=== PATIENT | male | born 1945 ===

== ENCOUNTER 2018-10-09 14:38 | Outpatient (REF) | payer MEDICARE, OTHER, SELFPAY ==
[2018-10-09 19:58] LABS: HGB 14.4 g/dL (13.5-17.5); Mean Corp. HGB Concentration 35.1 g/dL (32.0-36.0); Mean Corpuscular Hemoglobin 32.3 pg (27.0-33.0); Mean Corpuscular Volume 91.9 fL (80-95); Mean Platelet Volume 9.8 fL (8.0-11.0); Platelet Count 230 x1000/uL (130-400); RBC 4.46 m/cumm (4.50-6.00); White Blood Cell Count 6.38 k/cumm (4.4-10.8)
[2018-10-09 20:01] LABS: Anion Gap 10.9 mmol/L (3-11); BUN 17 mg/dL (7-18); C-Reactive Protein 0.31 mg/dL (0.0-0.3); CO2 25.1 mmol/L (21.0-32.0); CREATININE 0.85 mg/dL (0.70-1.30); Calcium 9.4 mg/dL (8.5-10.1); Chloride 103 mmol/L (98-107); Glucose 117 mg/dL (70-100); Potassium 4.4 mmol/L (3.5-5.1); Sodium 139 mmol/L (136-145); Uric Acid 6.1 mg/dL (3.5-7.2)
[2018-10-09 20:41] LABS: ESR 13 MM/HR (1-20)
[2018-10-11 11:28] LABS: Lyme Ab w Rflx to Lyme Confirm Negative
== END 2018-10-09 14:58 ==
LOC: NCHCN 14:38
PROVIDERS: PCP Physician Assistant; Visit Provider Internal Medicine
DX: M25.571 Pain in right ankle and joints of right foot (principal); M12.871 Other specific arthropathies, not elsewhere classified, right ankle and foot
CPT/HCPCS: 80048; 85027; 85652; 84550; 86140; 86618

== ENCOUNTER 2018-11-16 15:24 | Outpatient (REF) | payer MEDICARE, OTHER, SELFPAY ==
[2018-11-16 19:19] LABS: ALT 26 U/L (12-78); LDL CHOLESTEROL 58 mg/dL (<100); TSH 1.34 uIU/mL (0.36-3.74)
== END 2018-11-16 15:44 ==
LOC: NCHCN 15:24
PROVIDERS: PCP Physician Assistant; Visit Provider Internal Medicine
DX: E78.5 Hyperlipidemia, unspecified (principal); R53.83 Other fatigue; I73.9 Peripheral vascular disease, unspecified; M12.871 Other specific arthropathies, not elsewhere classified, right ankle and foot
CPT/HCPCS: 83721; 84443; 84460

== ENCOUNTER 2019-05-21 15:36 | Outpatient (REF) | payer MEDICARE, OTHER, SELFPAY ==
[2019-05-21 19:34] LABS: HCT 44.2 % (40.0-50.0); HGB 15.3 g/dL (13.5-17.5); Mean Corp. HGB Concentration 34.6 g/dL (32.0-36.0); Mean Corpuscular Hemoglobin 31.9 pg (27.0-33.0); Mean Corpuscular Volume 92.3 fL (80-95); Platelet Count 233 x1000/uL (130-400); RBC 4.79 m/cumm (4.50-6.00); RBC Distribution Width 12.9 % (11.8-14.1)
[2019-05-21 19:51] LABS: Anion Gap 6.1 mmol/L (3-11); BUN 25 mg/dL (7-18); CO2 30.9 mmol/L (21.0-32.0); CREATININE 1.15 mg/dL (0.70-1.30); Calcium 8.9 mg/dL (8.5-10.1); Chloride 103 mmol/L (98-107); Glucose 101 mg/dL (74-106); Potassium 4.4 mmol/L (3.5-5.1); Sodium 140 mmol/L (136-145)
[2019-05-21 19:53] LABS: Troponin I < 0.05 ng/Ml (<0.06)
== END 2019-05-21 15:56 ==
LOC: NCHCN 15:36
PROVIDERS: PCP Physician Assistant; Visit Provider Internal Medicine
DX: R55 Syncope and collapse (principal); I48.92 Unspecified atrial flutter
CPT/HCPCS: 80048; 85027; 84484

== ENCOUNTER 2019-08-17 18:59 | Outpatient (REF) | payer MEDICARE, OTHER, SELFPAY ==
[2019-08-17 20:02] LABS: Abs Immature Grans 0.01 k/cumm (0.0-0.09); Absolute Basophil Count 0.02 k/cumm (0.0-0.2); Absolute Eosinophil Count 0.12 k/cumm (0.0-0.7); Absolute Lymphocyte Count 1.88 k/cumm (1.2-3.4); Absolute Monocyte Count 0.98 k/cumm (0.11-0.7); Absolute Neutrophil Count 4.61 k/cumm (1.2-6.7); Basophils % 0.3; Eosinophils % 1.6; HCT 45.5 % (40.0-50.0); HGB 15.8 g/dL (13.5-17.5); Immature Grans % 0.1 %; Lymphocytes % 24.7; Mean Corp. HGB Concentration 34.7 g/dL (32.0-36.0); Mean Corpuscular Hemoglobin 31.7 pg (27.0-33.0); Mean Corpuscular Volume 91.4 fL (80-95); Mean Platelet Volume 10.8 fL (8.0-11.0); Monocytes % 12.9; Neutrophils % 60.4; Platelet Count 198 x1000/uL (130-400); RBC 4.98 m/cumm (4.50-6.00); RBC Distribution Width 13.9 % (11.8-14.1); White Blood Cell Count 7.62 k/cumm (4.4-10.8)
[2019-08-17 20:13] LABS: C-Reactive Protein 0.14 mg/dL (0.0-0.3); LDH 203 U/L (85-227)
[2019-08-17 20:41] LABS: ESR 7 mm/hr (1-20)
== END 2019-08-17 19:19 ==
LOC: NCHCN 18:59
PROVIDERS: PCP Physician Assistant; Visit Provider Internal Medicine
DX: I48.92 Unspecified atrial flutter (principal); I88.9 Nonspecific lymphadenitis, unspecified; M79.10 Myalgia, unspecified site
CPT/HCPCS: 85652; 83615; 85025; 86140

== ENCOUNTER 2021-05-19 14:19 | Outpatient (REF) | payer OTHER, SELFPAY ==
--- OUTSIDE RECORDS SUMMARY | 2021-05-19 14:23 | XMS_ITS ---
:1945 Author Care Team Providers Name Role Phone NII SPENCER MD General Surgeon [phone] MONTRELL LUCERO MD Property Damage Claims Adjustor [phone] VANDANA NELSON MD Primary Care Provider [phone] Allergies Code Code System Name Reaction Severity Status Onset Penicillins Rash ? Active ? Notes: No seafood allergy. No co ntrast allergy. Medications Name Status Start Date Stop Date ? ? Ambien 10 mg tablet Completed 01/01/2013 08/27/2015 -1 Tablet: as needed amlodipine 5 mg-valsartan 320 Completed ? mg tablet aspirin 81 mg tablet,delayed release Completed ? 01/28/2021 Take 1 tablet every day by oral route as needed. atorvastatin 20 mg tablet Active ? Not av ailable Take 1 tablet every day by oral route in the evening. atovaquone 250 mg-proguanil 100 mg tablet Completed 201102/14/2012 1 Tablet: daily chlorthalidone 25 mg tablet Completed 11/28/2014 06/03/2015 Tablet: daily for blood pressure Cipro 250 mg tablet Completed 05/13/2010 05/13/2010 1 (one) Tablet: Twice daily Cipro 500 mg tablet Completed 08/28/2015 05/13/2016 1 (one) Tablet: take after Cystoscopy dexamethasone 4 mg tablet Completed ? 2019 Eliquis 5 mg tablet Active 01/28/2021 Not availabl e Fish Oil 1,000 mg (120 mg-180 mg) capsule Completed ? 06/01/2019 Take 1 capsule every day by oral route in the evening. fluocinolone 0.01 % topical solution Completed 08/13/2014 08/27/2015 1 (one) application: at bedtime as needed gabapentin 100 mg capsule Completed ? 2019 hydrochlorothiazide 12.5 mg tablet Unknown ? Not available Take 1 tablet every day by oral route in the morning. hydrochlorothiazide 25 mg tablet Active ? Not available Take 1 tablet every day by oral route. hydrocodone 5 mg-acetaminophen Completed ? 0 06/01/2019 325 mg tablet hydrocodone 7.5 Completed ? 06/01/2019 mg-acetaminophen 325 mg tablet losartan 100 mg tablet Completed ? 1 Take 1 tablet every day by oral route. losartan 25 mg tablet Completed ? 01/30/2020 Take 2 tablets every day by oral route. losartan 50 mg tablet Active ? Not availa ble Take 1 tablet twice a day by oral route. methylprednisolone 4 mg Completed ? 04/27/19 20 tablets in a dose pack metoprolol succinate ER 50 mg Completed ? tablet,extended release 24 hr metoprolol tartrate 25 mg tablet Active ? Not available Take 0.5 tablet(s) twice a day by oral route. ondansetron HCl 4 mg tablet Completed ? 08/2019 oxybutynin chloride 5 mg Completed ? 020 tablet prednisone 20 mg tablet Completed ? 04/27/19 20 tamsulosin 0.4 mg capsule Completed ? 2019 1 tablet daily triamcinolone acetonide 0.1 % topical ointment Completed 1 04/10/2013 02/28/2014 1 (one) Ointment: two times daily valacyclovir 1 gram tablet Completed 01/17/201405/23 1 (one) Tablet Tablet: daily Vicodin 5 mg-300 mg tablet Completed ? 09/14 Take 1 tablet every 4 hours by oral route as needed. Notes: 09/06/2019 Pt also report s taking atorvastatin - unsure of dosage. Problems Name Status Onset Date Source ? 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 Hyperlipidemia Active 07/27/2018 ? Numbness of Face Active 07/27/2018 ? History of Calculus of Kidney Active 07/27/2018 ? Hyperopia of Right Eye Active 07/27/2018 ? Inguinal Hernia Active 09/04/2018 ? Atrial Flutter Active 06/01/2019 ? Snoring Active 08/31/2019 ? 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 Herpes Simplex Active ? History Verruca Plantaris Active ? History Plane Wart Active ? History Body Mass Index 25-29 - Overweight Active ? History Impotence Active ? History Obstructive Sleep Apnea Syndrome Active ? ? Essential Tremor Active ? History Migraine with Aura Active ? History Benign Essential Hypertension Active ? Hi story Hypertensive Disorder Active ? History Allergic Rhinitis Active ? History Diaphragmatic Hernia Active ? History Melena Active ? History Blood in Urine Active ? History Itching Active ? History Actinic Keratosis Active ? History Sleep Disorder Active ? History Eruption Active ? History Chest Pain Active ? History Reduced Libido Active ? History Influenza Vaccine Needed Active ? History Consultation Active ? History Adult Health Examination Active ? History Tuberculosis Screening Active ? History Inflammatory Dermatosis Active ? History Knee Pain Active ? History Procedures Date Name Performed by ? 05/09/2019 Bladder Tumor Transurethral Information not available Resection 09/04/2018 Hernia Repair Inguinal Information not a vailable Notes: open inguinal hernia repair wi th mesh, right 05/25/2016 Colonoscopy Information not avai lable Notes: pancolonic diverti culosis, small internal hemrrhoids; 04/07/2011 diverticulosis; 11/01/1995 small polyps removed, mild diverticulosis of the sigmoid, internal hemorrhoids, otherwise normal colonoscopy to the terminal ileum 03/31/2011 Cryotherapy/Cryocautery Information not available Notes: destruction of lesion; seborrh eic keratoses left ch ? Operation on Bladder Information not nas ilable Notes: 201606/01/2019 Holter Monitor [facility] Cardio pulmonary [address], [place] [address] (Work Place) 06/01/2019 Event Monitor [facility] Cardio pulmonary [address] [place], [place] [address] (Work Place) 07/19/2019 Holter Monitor [facility] [address] [place] [address] (Work Place) Results Lab Results Date Name Specimen Result Interpretation Description Value Range Status Address ? 03/07/2020 CBC W/ Auto BLD ? Wbc 7.5 10*3/uL 5.0-10.0 F inal [place] Diff 10*3/uL [facility] L ab (Internal) : [address] ? ? BLD ? Rbc 4.79 10*6/uL 4.60-6.00 Final N orth 10*6/uL [facility] L ab (Internal) : [address] ? ? BLD ? Hgb 15.6 g/dL 14.0-18.0 Final Nort h g/dL [facility] L ab (Internal) : [address] ? ? BLD ? Hct 45.8 % 41.0-51.0 Final [facility] L ab (Internal) : [address] ? ? BLD ? Mcv 95.6 fL 80.0-96.0 Final [facility] L ab (Internal) : [address] ? ? BLD High Mch 32.6 pg 26.0-32.0 Final [facility] L ab (Internal) : [address] , [place] ? ? BLD ? Mchc 34.1 g/dL 31.0-35.0 Final Nort h g/dL [facility] L ab (Internal) : [address] ? ? BLD ? Rdw 12.4 % 11.5-14.5 Final [facility] L ab (Internal) : [address] ? ? BLD ? Plt 216 10*3/uL 130-450 Final Nort h 10*3/uL [facility] L ab (Internal) : [address] ? ? BLD ? Anc 4.83 10*3/uL ? Final Nort h [facility] L ab (Internal) : [address] ? ? BLD ? Nlr 3.10 0.00-3.20 Final [facility] L ab (Internal) : [address] ? ? BLD ? Neutro 64.6 % 40.0-75.0 Final [facility] L ab (Internal) : [address] ? ? BLD ? Lymph 20.9 % 20.0-50.0 Final [facility] L ab (Internal) : [address] ? ? BLD High [place] 11.6 % 2.0-10.0 Final [facility] L ab (Internal) : [address] ? ? BLD ? Eos 2.0 % 1.0-6.0 % Final [facility] L ab (Internal) : [address] [place] ? ? BLD ? Baso 0.5 % 0.0-1.0 % Final [facility] L ab (Internal) : [address] ? ? BLD ? Ig 0.4 % 0.0-0.9 % Final [facility] L ab (Internal) : [address] 03/07/2020 BMP, Serum S High g/r 108 mg/dL 74-106 Final North or Plasma mg/dL [facility] [address] ? ? S High Bun 25 mg/dL 9-20 Final [facility] mg/dL [facility] (Internal) : [address] ? ? S ? Crea 1.00 mg/dL 0.66-1.25 Final Nor th mg/dL [facility] (Internal) : [address] ? ? S ? Ca 9.8 mg/dL 8.4-10.2 Final [place] mg/dL [facility] (Internal[facility] : [address] ? ? S ? Na 140 mmol/L 137-145 Final North mmol/L [facility] L [facility] (Internal) : [address] ? ? S ? K 4.1 mmol/L 3.5-5.1 Final [place] mmol/L [facility] (Internal) : [address] ? ? S ? Cl 101 mmol/L 98-107 Final [place] mmol/L [facility] L [facility] (Internal) : [address] ? ? S ? Tco2 30.0 mmol/L 22.0-30.0 Final No rth mmol/L [facility] L [facility] (Internal) : [address] 03/07/2020 BNP (B-type S ? Nt-probnp 84 pg/mL 0-125 Fi nal North Natriuretic pg/mL Count ry Peptide), Hospita l Lab Prohormone (Inter nal): N-terminal, [address], [place] Immunoassay , Blood 01/03/2020 EKG Done by ? No ? ? ? N orth Lab observatio [facility] recorded. (Shipping Inspector al): [address] 09/07/2019 EKG Done by ? No ? ? ? N orth Lab [facility]atio [facility] recorded. (Shipping Inspector al): [address] 09/07/2019 EKG Done by ? No ? ? ? N orth Lab observatio [facility] recorded. (Shipping Inspector al): [address] 02/27/2019 Culture UR - Final microbiology ? Final [place] (Dante results [facility]), Hospital Lab Urine (Internal) : [address] 02/27/2019 Urinalysis, UR - UA-color yellow pale Final [place] Complete yellow [facility] ab (Internal) : [address] t ? ? UR ABNORMAL UA-appear hazy clear [facility] [address] t ? ? UR - UA-spec >=1.030 1.003-1.0 Final Nort Grav 35 [facility] ab (Internal) : [address] ? ? UR - UA-pH 5.0 [pH] 4.6-8.0 Final [place] [pH] [facility] ab (Internal) : [address] t ? ? UR ABNORMAL UA-leuk trace negative [facility] ab (Internal[facility] : [address] t ? ? UR - UA-nitrit negative negative Final No rth e [facility] ab (Internal) : [address] t ? ? UR ABNORMAL UA-prot 1+ negative Final [facility] ab (Internal) : [address] t ? ? UR - UA-gluc negative negative Final [facility] ab (Internal) : [address] t ? ? UR - UA-ketone negative negative [facility] [address] t ? ? UR - UA-urobil normal normal Final [facility] ab (Internal) : [address] t ? ? UR - UA-bili negative negative Final [facility] ab (Internal) : [address] t ? ? UR ABNORMAL UA-blood moderate negative Final [facility] ab (Internal) : [address] t ? ? UR ABNORMAL UA-WBC 10-25 [hpf] 0-3 [hpf] Final [facility] ab (Internal) : [address] t ? ? UR ABNORMAL UA-RBC 5-10 [hpf] 0-2 [hpf] Final [facility] L ab (Internal) : [address] ? ? UR - UA-bacter rare [hpf] none seen Final [place] ia [hpf] [facility] L ab (Internal) : [address] t ? ? UR - UA-epithe rare [hpf] none seen Final [place] lial [hpf] [facility] L [facility] (Internal) : [address] t ? ? UR ABNORMAL UA-mucus rare [hpf] none seen Final [place] [hpf] [facility] L [facility] (Internal) : [address] 07/26/2017 Venipunctur BLD ? Venpn* ? ? Final [facility] (Internal) : [address] 07/26/2017 Culture, UR ? Final microbiology ? Final [place] Urine results [facility] (Internal) : [address] 07/26/2017 CBC W/ Auto BLD ? Wbc 6.5 10*3/uL 5.0-10.0 F inal [place] Diff 10*3/uL [facility] (Internal) : [address] t ? ? BLD ? Rbc 4.80 10*6/uL 4.60-6.00 Final N orth 10*6/uL [facility] (Internal) : [address] ? ? BLD ? Hgb 15.3 g/dL 14.0-18.0 Final Nort h g/dL [facility] L [facility] (Internal) : [address] t ? ? BLD ? Hct 44.9 % 41.0-51.[address] [facility] L [facility] (Internal) : [address] ? ? BLD ? Mcv 93.5 fL 80.0-96.0 Final [facility] L ab (Internal) : [address] ? ? BLD ? Mch 31.9 pg 26.0-32.0 Final [facility] L [facility] (Internal) : [address] t ? ? BLD ? Mchc 34.1 g/dL 31.0-35.0 Final Nort h g/dL [facility] L [facility] (Internal) : [address] ? ? BLD ? Rdw 13.2 % 11.5-14.5 Final [place] % [facility] L [facility] (Internal) : [address] ? ? BLD ? Plt 134 10*3/uL 130-450 Final Nort h 10*3/uL [facility] (Internal[facility] : [address] ? ? BLD ? Anc 4.03 10*3/uL ? Final Nort h [facility] L ab (Internal) : [address] ? ? BLD ? Neutro 62.3 % 40.0-75.0 Final [place] % [facility] L [facility] (Internal) : [address] ? ? BLD ? Lymph 24.8 % 20.0-50.0 Final [place] % [facility] L [facility] (Internal) : [address] t ? ? BLD High [place] 10.2 % 2.0-10.0 Final [facility] L ab (Internal) : [address] ? ? BLD ? Eos 1.9 % 1.0-6.0 % Final [facility] L ab (Internal) : [address] ? ? BLD ? Baso 0.5 % 0.0-1.0 % Final [facility] L ab (Internal) : [address] ? ? BLD ? Ig 0.3 % 0.0-0.9 % Final [facility] L [facility] (Internal) : [address] t 07/26/2017 CMP, Serum S ? g/r 105 mg/dL 74-106 Final North or Plasma mg/dL [facility] (Internal) : [address] ? ? S ? Bun 18 mg/dL 9-20 Final North mg/dL [facility] (Internal) : [address] t ? ? S ? Crea 1.00 mg/dL 0.66-1.25 Final Nor th mg/dL [facility] L [facility] (Internal) : [address] t ? ? S ? Ca 9.8 mg/dL 8.4-10.2 Final [facility] mg/dL [facility] (Internal) : [address] t ? ? S ? Na 140 mmol/L 137-145 Final [facility] mmol/L [facility] (Internal) : [address] t ? ? S ? K 4.1 mmol/L 3.5-5.1 Final [facility] mmol/L [facility] (Internal) : [address] t ? ? S ? Cl 101 mmol/L 98-107 Final [place] mmol/L [facility] (Internal) : [address] t ? ? S ? Tco2 29.0 mmol/L 22.0-30.0 Final No rth mmol/L [facility] (Internal) : [address] t ? ? S ? Tp 8.0 g/dL 6.3-8.2 Final [facility] g/dL [facility] (Internal) : [address] t ? ? S ? Alb 4.8 g/dL 3.5-5.0 Final [facility] g/dL [facility] (Internal) : [address] t ? ? S ? Tbil 1.1 mg/dL 0.2-1.3 Final [facility] mg/dL [facility] (Internal) : [address] t ? ? S Low Alp 33 U/L 38-126 Final [facility] U/L [facility] (Internal[facility] : [address] t ? ? S ? Alt 34 U/L 21-72 U/L Final [place] (Sgpt) [facility] (Internal) : [address] t ? ? S ? Ast 35 U/L 17-59 U/L Final [place] (Sgot) [facility] (Internal) : [address] 11/30/2016 Venipunctur BLD ? Venpn* ? ? Final North e [facility] (Internal[facility] : [address] 11/30/2016 CMP, Serum S High g/r 107 mg/dL 74-106 Final North or Plasma mg/dL [facility] (Internal) : [address] t ? ? S ? Bun 18 mg/dL 9-20 Final [facility] mg/dL [facility] (Internal) : [address] t ? ? S ? Crea 1.00 mg/dL 0.66-1.25 Final Nor th mg/dL [facility] (Internal) : [address] t ? ? S ? Ca 9.5 mg/dL 8.4-10.2 Final [facility] mg/dL [facility] (Internal) : [address] t ? ? S ? Na 140 mmol/L 137-145 Final [facility] mmol/L [facility] (Internal) : [address] t ? ? S ? K 4.2 mmol/L 3.5-5.1 Final [facility] mmol/L [facility] (Internal) : [address] t ? ? S ? Cl 99 mmol/L 98-107 Final [place] mmol/L [facility] (Internal) : [address] t ? ? S ? Tco2 27.0 mmol/L 22.0-30.0 Final No rth mmol/L [facility] (Internal) : [address] t ? ? S High Tp 8.5 g/dL 6.3-8.2 Final [facility] g/dL [facility] (Internal) : [address] t ? ? S ? Alb 5.0 g/dL 3.5-5.0 Final [facility] g/dL [facility] (Internal) : [address] t ? ? S ? Tbil 1.2 mg/dL 0.2-1.3 Final [facility] mg/dL [facility] (Internal) : [address] t ? ? S Low Alp 37 U/L 38-126 Final [place] U/L [facility] (Internal) : [address] t ? ? S Low Alt 20 U/L 21-72 U/L Final [place] (Sgpt) [facility] (Internal) : [address] t ? ? S ? Ast 30 U/L 17-59 U/L Final [place] (Sgot) [facility] (Internal) : [address] t 11/30/2016 Lipid S ? Chol 121 mg/dL 50-200 Final Nor th Panel, mg/dL [facility] Serum [facility] L ab (Internal) : [address] t ? ? S ? Trig 96 mg/dL 10-150 Final [place] mg/dL [facility] L ab (Internal) : [address] t ? ? S ? Hdl 44 mg/dL 40-60 Final North mg/dL [facility] (Internal) : [address] t ? ? S ? Ldl 58 mg/dL 0-130 Final [place] mg/dL [facility] (Internal) : [address] 08/05/2016 Venipunctur BLD ? Venpn* ? ? Final [place] e [facility] ab (Internal) : [address] 08/05/2016 Creatinine, S ? Crea 1.00 mg/dL 0.66-1.25 F inal [place] Serum or mg/dL [facility] Plasma [facility] L ab (Internal) : [address] 06/14/2016 Culture, UR ? Final microbiology ? Final [place] Urine results [facility] ab (Internal) : [address] 06/14/2016 Urinalysis, UR ABNORMAL UA-WBC 10-25 [hpf] 0-3 [hp f] Final [place] Microscopic Count [facility] ab (Internal) : [address] t ? ? UR ABNORMAL UA-RBC >100 [hpf] 0-2 [hpf] Final [facility] ab (Internal) : [address] t ? ? UR ABNORMAL UA-bacter moderate none seen Final [place] ia [hpf] [hpf] [facility] ab (Internal) : [address] t ? ? UR ? UA-epithe rare [hpf] none seen Final [place] lial [hpf] [facility] ab (Internal) : [address] ? ? UR ? UA-mucus none seen none seen Final N orth [hpf] [hpf] [facility] ab (Internal) : [address] 06/14/2016 Urinalysis, UR ? UA-color dark yellow pale Final [place] Dipstick, yellow [facility] ab Micro (Internal) : [address] t ? ? UR ABNORMAL UA-appear cloudy clear Final Nort h [facility] ab (Internal) : [address] ? ? UR ? UA-spec 1.025 1.003-1.0 Final [place] Grav [address] [place] [address] (Internal) : [address] ? ? UR ? UA-pH 5.5 [pH] 4.6-8.0 Final [place] [pH] [facility] ab (Internal) : [address] ? ? UR ABNORMAL UA-leuk trace negative Final [facility] ab (Internal) : [address] ? ? UR ABNORMAL UA-nitrit positive negative Final [facility] (Internal) : [address] [place] ? ? UR ABNORMAL UA-prot 2+ negative Final [facility] (Internal) : [address] ? ? UR ? UA-gluc negative negative Final [facility] ab (Internal) : [address] ? ? UR ? UA-ketone negative negative Final No [facility] (Internal) : [address] ? ? UR ABNORMAL UA-urobil positive normal Final No [facility] (Internal) : [address] [place] ? ? UR ? UA-bili negative negative Final [facility] (Internal) : [address] ? ? UR ABNORMAL UA-blood large negative Final [facility] (Internal) : [address] [place] Past Encounters 01/28/2021 Montrell Lucero MD: [address] [place] [address], Ph. 07/29/2020 Montrell Lucero MD: [address] [place] [address], Ph. 06/02/2020 Obstructive Sleep Apnea Syndrome Lucero Magallon NP: [address] [place] [address], Ph. 03/03/2020 Obstructive Sleep Apnea Syndrome; Period ic Leg Movements of Sleep Lucero Magallon NP: [address] [place] [address], Ph. 01/03/2020 Montrell Lucero MD: [address] [place] [address], Ph. 11/21/2019 Snoring; Atrial Flutter Lucero Magallon [employer]OCK BRE[employer]ER: [address], [place] [address], Ph. Social History Tobacco Smoking Status Never Smoker Vaccine List Vaccine Type COVID-19, mRNA, LNP-S, PF, 100 mcg/0.5 m L dose (Moderna) 06/13/2020?100 mcg Hep A-Hep B 02/02/2012?0.5 mL 02/21/2013?1 mL 07/25/2013?1 mL influenza, high dose seasonal 12/28/2018 influenza, high-dose, quadrivalent 01/11/2020 influenza, injectable, quadrivalent 03/08/2018 influenza, seasonal, injectable 12/27/2011?0.5 mL 12/30/2016?0.5 mL influenza, seasonal, injectable, preserv ative free 11/18/2010?0.5 mL 01/01/2013?0.5 mL 02/28/2014?0.5 mL pneumococcal polysaccharide PPV23 02/26/2011?0.5 mL Tdap 11/18/2010?0.5 mL typhoid, ViCPs 02/01/2012?0.5 mL yellow fever 02/01/2012?0.5 mL zoster live 02/26/2011?0.65 mL Plan of Care Reminders Provider Appointments None ? ? recorded. Lab None ? ? recorded. Referral None ? ? recorded. Procedures None ? ? recorded. Surgeries None ? ? recorded. Imaging None ? ? recorded. Vitals 01/28/2021 09:45AM Follow Up 30 Height Weight BMI Blood Pressure 187.96 cm 98 kg 27.7 kg/m2 149/76 mm[Hg] 07/29/2020 08:30AM Follow Up 30 Height Weight BMI Blood Pressure 187.96 cm 97.3 kg 27.5 kg/m2 136/76 mm[Hg] 06/02/2020 10:00AM Office 30 Height Weight BMI 187.96 cm 94.35 kg 26.7 kg/m2 03/03/2020 09:15AM Office 30 Height Weight BMI 185.42 cm 92.53 kg 26.9 kg/m2 01/03/2020 01:00PM Follow Up 30 Height Weight BMI Blood Pressure 185.42 cm 93.4 kg 27.2 kg/m2 (1) 136/69 mm[H g] (2) 133/73 mm[Hg ] 11/21/2019 01:00PM New Patient 46 Height Weight BMI Blood Pressure 185.42 cm 93.53 kg 27.2 kg/m2 175/78 mm[Hg] 10/15/2019 09:30AM Follow Up 30 Height Weight BMI Blood Pressure 185.42 cm 93 kg 27.1 kg/m2 120/76 mm[Hg] 07/18/2019 02:00PM Follow Up 30 Height 185.42 cm 06/01/2019 09:30AM Follow Up 30 Height Weight BMI Blood Pressure 185.42 cm 95.5 kg 27.8 kg/m2 123/82 mm[Hg] 04/27/2019 11:15AM Consult 45 Height Weight BMI Blood Pressure 185.42 cm 97.6 kg 28.4 kg/m2 128/76 mm[Hg] 09/14/2018 01:45PM Office 15 Height 185.42 cm 04/28/2018 Height Weight BMI Blood Pressure 185.42 cm 95.35 kg 27.7 kg/m2 122/80 mm[Hg] 02/24/2018 11:00AM Follow Up 15 Height 182.88 cm 06/22/2017 Height Weight 182.88 cm 93.89 kg 05/11/2016 Height Weight 184.15 cm 93.53 kg 08/27/2015 Weight Blood Pressure 92.08 kg 150/70 mm[Hg] 05/23/2014 Weight Blood Pressure 89.99 kg 154/74 mm[Hg] 02/28/2014 Height Weight Blood Pressure 184.15 cm 90.85 kg 160/80 mm[Hg] 07/25/2013 Height Weight Blood Pressure 184.15 cm 91.76 kg (1) 130/70 mm[Hg] (2) 138/70 mm[Hg] 02/21/2013 Height Weight Blood Pressure 184.15 cm 94.85 kg (1) 140/70 mm[Hg] (2) 150/70 mm[Hg] (3) 140/60 mm[Hg] (4) 134/72 mm[Hg] 01/31/2013 Height Weight Blood Pressure 184.15 cm 99.2 kg 140/70 mm[Hg] 01/01/2013 Height Weight Blood Pressure 185.42 cm 98.84 kg 138/80 mm[Hg] 06/29/2012 Height Weight Blood Pressure 184.79 cm 100.02 kg (1) 160/80 mm[Hg] (2) 138/80 mm[Hg] 02/02/2012 Blood Pressure 142/80 mm[Hg] 02/26/2011 Height Weight Blood Pressure 184.15 cm 100.56 kg (1) 132/80 mm[Hg] (2) 128/70 mm[Hg] 11/18/2010 Height Weight Blood Pressure 184.79 cm 100.24 kg 118/68 mm[Hg] 05/13/2010 Weight Blood Pressure 98.6 kg (1) 140/84 mm[Hg] (2) 136/78 mm[Hg] 02/24/2010 Height Weight Blood Pressure 182.88 cm 97.2 kg 116/60 mm[Hg]
[2021-05-19 19:03] LABS: HCT 43.9 % (40.0-50.0); HGB 14.9 g/dL (13.5-17.5); MCH 32.3 pg (27.0-33.0); MCHC 33.9 % (32.0-36.0); MPV 10.7 fL (8.0-11.0); Platelet Count 202 10^3/uL (130-400); RBC 4.62 10^6/uL (4.36-5.78); RDW 12.9 % (11.8-14.1); RDW-SD 44.9 fL; WBC 5.71 10^3/uL (4.4-10.8)
[2021-05-19 19:21] LABS: Anion Gap 9.3 mmol/L (3-11); BUN 25 mg/dL (7-18); CO2 27.7 mmol/L (21.0-32.0); CREATININE 1.2 mg/dL (0.70-1.30); Calcium 9.3 mg/dL (8.5-10.1); Calculated LDL 62 mg/dL (<100); Chloride 103 mmol/L (98-107); Cholesterol 127 mg/dL (<200); Estimated GFR 59.02 (mL/min/1.73m2); Glucose 110 mg/dL (74-106); HDL Cholesterol 53 mg/dL (40-60); Potassium 4.2 mmol/L (3.5-5.1); Sodium 140 mmol/L (136-145); Triglyceride 64 mg/dL (<150)
[2021-05-25 16:44] LABS: Testosterone, Free 7.78 ng/dL (3.08-11.3); Testosterone, Total 389 ng/dL (240-950)
== END 2021-05-19 14:20 | disposition home or self-care (01) ==
LOC: NCHCN 14:19
PROVIDERS: PCP Physician Assistant; Visit Provider Internal Medicine
DX: I10 Essential (primary) hypertension (principal); R53.83 Other fatigue; E78.5 Hyperlipidemia, unspecified; M79.10 Myalgia, unspecified site
CPT/HCPCS: 80048; 80061; 84402; 84403; 85027

== ENCOUNTER 2022-02-01 21:04 | Outpatient (REF) | payer MEDICARE, SELFPAY ==
[2022-02-01 21:22] LABS: HGB 15.4 g/dL (13.5-17.5); MCH 32.9 pg (27.0-33.0); MCV 94 fL (80-95); MPV 12.2 fL (8.0-11.0); Platelet Count 129 10^3/uL (130-400); RBC 4.68 10^6/uL (4.36-5.78); RDW 12.7 % (11.8-14.1); RDW-SD 43.6 fL; WBC 6.21 10^3/uL (4.4-10.8)
[2022-02-01 21:42] LABS: ALT 28 U/L (16-63); AST 28 U/L (15-37); Alkaline Phosphatase 35 U/L (46-116); Anion Gap 8.4 mmol/L (3-11); BUN 21 mg/dL (7-18); Bilirubin, Total 1.1 mg/dL (0.2-1.0); CO2 25.6 mmol/L (21.0-32.0); CREATININE 1.1 mg/dL (0.70-1.30); Calcium 9.1 mg/dL (8.5-10.1); Calculated LDL 63 mg/dL (<100); Chloride 103 mmol/L (98-107); Cholesterol 125 mg/dL (<200); Estimated GFR 69.57 (mL/min/1.73m2); Glucose 131 mg/dL (74-106); HDL Cholesterol 46 mg/dL (40-60); Potassium 4.4 mmol/L (3.5-5.1); Sodium 137 mmol/L (136-145); Total Protein 7.5 g/dL (6.4-8.2); Triglyceride 84 mg/dL (<150)
== END 2022-02-01 21:05 | disposition home or self-care (01) ==
LOC: NCHCN 21:04
PROVIDERS: PCP Physician Assistant; Visit Provider Internal Medicine
DX: E78.5 Hyperlipidemia, unspecified (principal); I10 Essential (primary) hypertension
CPT/HCPCS: 80053; 80061; 85027

== ENCOUNTER 2022-10-05 10:23 | Outpatient (REF) | payer MEDICARE, SELFPAY ==
[2022-10-05 19:40] LABS: HGB 15.7 g/dL (13.5-17.5); MCH 32.8 pg (27.0-33.0); MCHC 35.7 % (32.0-36.0); MCV 92 fL (80-95); MPV 11.9 fL (8.0-11.0); Platelet Count 150 10^3/uL (130-400); RBC 4.78 10^6/uL (4.36-5.78); RDW-SD 43.8 fL; WBC 5.68 10^3/uL (4.4-10.8)
[2022-10-05 22:24] LABS: ALT 62 U/L (16-63); AST 45 U/L (15-37); Alkaline Phosphatase 35 U/L (46-116); Anion Gap 7.8 mmol/L (3-11); BUN 19 mg/dL (7-18); Bilirubin, Total 0.8 mg/dL (0.2-1.0); CO2 28.2 mmol/L (21.0-32.0); CREATININE 1.1 mg/dL (0.70-1.30); Calcium 9.1 mg/dL (8.5-10.1); Chloride 104 mmol/L (98-107); Estimated GFR 69.57 (mL/min/1.73m2); Glucose 134 mg/dL (74-106); Potassium 4.2 mmol/L (3.5-5.1); Sodium 140 mmol/L (136-145); Total Protein 7.4 g/dL (6.4-8.2)
[2022-10-05 23:14] LABS: Iron 88 ug/dL (65-175); Total Iron Binding Capacity 320 ug/dL (250-450); Transferrin Sat 28 % (20-55)
[2022-10-07 12:35] LABS: Hepatitis C Ab w Rflx HCV PCR Negative (Negative)
== END 2022-10-05 10:24 | disposition home or self-care (01) ==
LOC: NCHCN 10:23
PROVIDERS: PCP Physician Assistant; Visit Provider Internal Medicine
DX: I10 Essential (primary) hypertension (principal); Z11.59 Encounter for screening for other viral diseases; R71.8 Other abnormality of red blood cells
CPT/HCPCS: 80053; 85027; 86803; 83540; 83550

== ENCOUNTER 2023-11-14 15:08 | Outpatient (REF) | payer MEDICARE, SELFPAY ==
[2023-11-14 19:57] LABS: HCT 45.1 % (40.0-50.0); HGB 15.6 g/dL (13.5-17.5); MCH 33.7 pg (27.0-33.0); MCHC 34.6 % (32.0-36.0); MCV 97 fL (80-95); MPV 12.6 fL (8.0-11.0); Platelet Count 106 10^3/uL (130-400); RBC 4.63 10^6/uL (4.36-5.78); RDW 12.6 % (11.8-14.1); RDW-SD 45.1 fL; WBC 6.66 10^3/uL (4.4-10.8)
[2023-11-14 20:16] LABS: ALT 34 U/L (16-63); AST 28 U/L (15-37); Albumin 4.2 g/dL (3.4-5.0); Alkaline Phosphatase 36 U/L (46-116); Anion Gap 8.4 mmol/L (3-11); BUN 26 mg/dL (7-18); Bilirubin, Total 1.08 mg/dL (0.2-1.0); CO2 25.6 mmol/L (21.0-32.0); CREATININE 1.4 mg/dL (0.70-1.30); Calcium 9.8 mg/dL (8.5-10.1); Chloride 103 mmol/L (98-107); Estimated GFR 51.77 (mL/min/1.73m2); Glucose 133 mg/dL (74-106); Potassium 4.3 mmol/L (3.5-5.1); Sodium 137 mmol/L (136-145); TSH 1.23 uIU/Ml (0.36-3.74); Total Protein 7.8 g/dL (6.4-8.2)
[2023-11-14 20:24] LABS: Hemoglobin A1C 5.9 % (<5.7)
== END 2023-11-14 15:09 | disposition home or self-care (01) ==
LOC: NCHCN 15:08
PROVIDERS: PCP Physician Assistant; Visit Provider Internal Medicine
DX: R53.83 Other fatigue (principal)
CPT/HCPCS: 80053; 85027; 83036; 84443

== ENCOUNTER 2024-08-15 11:57 | Outpatient (REF) | payer MEDICARE, SELFPAY ==
[2024-08-15 20:24] LABS: HCT 44.7 % (40.0-50.0); HGB 15.5 g/dL (13.5-17.5); MCH 32.2 pg (27.0-33.0); MCHC 34.7 % (32.0-36.0); MCV 93 fL (80-95); Platelet Count 139 10^3/uL (130-400); RBC 4.81 10^6/uL (4.36-5.78); RDW 12.7 % (11.8-14.1); RDW-SD 43.7 fL; WBC 5.62 10^3/uL (4.4-10.8)
[2024-08-15 21:07] LABS: ALT 27 U/L (16-63); AST 29 U/L (15-37); Albumin 4.4 g/dL (3.4-5.0); Alkaline Phosphatase 41 U/L (46-116); Anion Gap 4.3 mmol/L (3-11); BUN 21 mg/dL (7-18); CO2 30.7 mmol/L (21.0-32.0); CREATININE 1.1 mg/dL (0.70-1.30); Calcium 9.8 mg/dL (8.5-10.1); Calculated LDL 66 mg/dL (<100); Chloride 103 mmol/L (98-107); Cholesterol 135 mg/dL (<200); Estimated GFR 68.71 (mL/min/1.73m2); Glucose 109 mg/dL (74-106); HDL Cholesterol 57 mg/dL (>or=40); Potassium 4.8 mmol/L (3.5-5.1); Sodium 138 mmol/L (136-145); Total Protein 8.1 g/dL (6.4-8.2); Triglyceride 63 mg/dL (<150); Vitamin B12 283 pg/mL (193-986)
== END 2024-08-15 11:58 | disposition home or self-care (01) ==
LOC: NCHCN 11:57
PROVIDERS: PCP Physician Assistant; Visit Provider Internal Medicine
DX: I10 Essential (primary) hypertension (principal); E78.5 Hyperlipidemia, unspecified; D69.6 Thrombocytopenia, unspecified
CPT/HCPCS: 80053; 80061; 85027; 82607